=== PATIENT | male | born 1970 | race Caucasian/White ===

== ENCOUNTER 2022-06-30 19:19 | Emergency (ER) | payer OTHER ==
[2022-06-30] MEDS ORDERED: MORPHINE SULFATE 4 MG INJ IV ONE ×2 (20:16→21:59)
[2022-06-30] MEDS ORDERED: MORPHINE SULFATE 4 MG INJ ONE ×2 (20:18→22:05)
--- NOTE | 2022-06-30 20:42 | ERPHSYRPT ---
- History of Present Illness Time Seen by Provider: 06/30/22 20:38 Source: patient Exam Limitations: no limitations Patient Subjective Stated Complaint: pt states he fell through a hole in the roof and caught himsef on his rt side. reprts pain in rt side. denies any other injury Triage Nursing Assessment: pt alert and oriented, answers questions approp. pt ambulates into room with slow steady gait noted. skin warm and dry. no bruising noted over ribs. pt reports tenderness with light palpation over lower ribs, anterior and posterior. Physician History: Patient is a 52-year-old male presents to emergency department for evaluation of right-sided rib pain. Patient states he fell through a roof and injured his right rib. Patient's ribs 7, 8, 9 are tender. No right upper quadrant pain or tenderness. Injury occurred just prior to arrival. No other injuries reported. No BHT or LOC. No neck pain. Cervical spine cleared clinically. No nausea vomiting or diaphoresis. Patient has a history of controlled hypertension. Patient is otherwise healthy. He voices no other complaints or concerns at this time. Patient is allergic to Toradol however he agreed to morphine IM for pain control Portions of this note were created with voice recognition technology. There may be grammatical, spelling, punctuation or sound alike errors Timing/Duration: today Severity: moderate Modifying Factors: Improves With: nothing Associated Symptoms: denies symptoms Allergies/Adverse Reactions: ketorolac tromethamine [From Toradol] Allergy (Verified 06/21/15 04:04) Home Medications: No Reportable Medications [No Reported Medications] 06/21/15 [History] Hx Tetanus, Diphtheria Vaccination/Date Given: Yes Hx Influenza Vaccination/Date Given: No Hx Pneumococcal Vaccination/Date Given: No Immunizations Up to Date: Yes Travel Risk - International Travel Have you traveled outside of the country in past 3 weeks: No - Coronavirus Screening Are you exhibiting any of the following symptoms?: No Close contact with a COVID-19 positive Pt in past 14-21 Days: No - Vaccine Status Have you recieved a Covid-19 vaccination: Yes [employer]: Intent - Vaccination Dates Date of 2cond Vaccination (if applicable): 2020 - Review of Systems Constitutional: No Symptoms, No Fever, No Chills Eyes: No Symptoms Ears, Nose, & Throat: No Symptoms Respiratory: No Symptoms, No Cough, No Dyspnea Cardiac: No Symptoms, No Chest Pain, No Edema, No Syncope Abdominal/Gastrointestinal: No Symptoms, No Abdominal Pain, No Nausea, No Vomiting, No Diarrhea Genitourinary Symptoms: No Symptoms, No Dysuria Musculoskeletal: No Symptoms, No Back Pain, No Neck Pain Skin: No Symptoms, No Rash Neurological: No Symptoms, No Dizziness, No Focal Weakness, No Sensory Changes Psychological: No Symptoms Endocrine: No Symptoms Hematologic/Lymphatic: No Symptoms Immunological/Allergic: No Symptoms All Other Systems: Reviewed and Negative - Past Medical History Pertinent Past Medical History: No Neurological History: No Pertinent History ENT History: No Pertinent History Cardiac History: High Cholesterol, Hypertension Respiratory History: No Pertinent History Endocrine Medical History: No Pertinent History Musculoskeletal History: No Pertinent History GI Medical History: No Pertinent History History: No Pertinent History Psycho-Social History: No Pertinent History Male Reproductive Disorders: No Pertinent History - Past Surgical History Past Surgical History: Yes Neuro Surgical History: No Pertinent History Cardiac: No Pertinent History Respiratory: No Pertinent History Gastrointestinal: Hernia Repair Genitourinary: No Pertinent History Musculoskeletal: Orthopedic Surgery Male Surgical History: No Pertinent History Other Surgical History: EYE, finger amputation, foot surgery - Social History Smoking Status: Never smoker Exposure to second hand smoke: No Drug Use: none Patient Lives Alone: No - Nursing Vital Signs Nursing Vital Signs: Initial Vital Signs Temperature 98.4 F 06/30/22 19:58 Pulse Rate 83 06/30/22 19:58 Respiratory Rate 18 06/30/22 19:58 Blood Pressure 129/85 06/30/22 19:58 O2 Sat by Pulse Oximetry 97 06/30/22 19:58 Pain Scale Pain Intensity 5 - Physical Exam General Appearance: no apparent distress, alert Eye Exam: PERRL/EOMI, eyes nml inspection Ears, Nose, Throat Exam: normal ENT inspection, TMs normal, pharynx normal, moist mucous membranes Neck Exam: normal inspection, non-tender, supple, full range of motion Respiratory Exam: normal breath sounds, lungs clear, airway intact, other (Tenderness to palpation right ribs 7, 8, 9, no right upper quadrant tenderness to palpation. Negative: Negative Gonzalez Khan sign. No abdominal pain), No respiratory distress Cardiovascular Exam: regular rate/rhythm, normal heart sounds, normal peripheral pulses Gastrointestinal/Abdomen Exam: soft, normal bowel sounds, No tenderness, No mass Back Exam: normal inspection, normal range of motion, No CVA tenderness, No vertebral tenderness Extremity Exam: normal inspection, normal range of motion, pelvis stable Neurologic Exam: alert, oriented x 3, cooperative, normal mood/affect, nml cere bellar function, nml station & gait, sensation nml, No motor deficits Skin Exam: normal color, warm, dry, No rash Lymphatic Exam: No adenopathy SpO2 Interpretation: normal SpO2: 97 O2 Delivery: Room Air - Course Nursing assessment & vital signs reviewed: Yes EKG Interpreted by Me: RATE (75), Sinus Rhythm, NORMAL AXIS, NORMAL INTERVALS, Right Bundle Branch Block - CT Exams Chest CT Interpretation: Tele-radiologist Report (No comps. Normal chest. Incidental nonobstructing bilateral renal micro calculi, fecal stasis old granulomatous disease) Ordered Tests: Active Orders 24 hr Category Date Time Status EKG-ER Only STAT Care 06/30/22 20:07 Active CHEST WITHOUT CONTRAST [CT] Stat Exams 06/30/22 20:06 Taken Medication Summary Discontinued Medications Generic Name Dose Route Start Last Admin Trade Name Gio PRN Reason Stop Dose Admin Hydrocodone Bitart/Acetaminophen 4 tab 06/30/22 21:59 Hydrocodone/Apap 5/325 1 Tab Tablet PO 06/30/22 22:00 SENT HOME W/ PATIENT ONE Morphine Sulfate 4 mg 06/30/22 20:16 06/30/22 20:18 Morphine Sulfate 4 Mg/Ml Injection IV 06/30/22 20:17 4 mg STAT ONE Administration Morphine Sulfate Confirm 06/30/22 20:18 Morphine Sulfate 4 Mg/Ml Injection Administered 06/30/22 20:19 Dose 4 mg .ROUTE .STK-MED ONE Morphine Sulfate 4 mg 06/30/22 21:59 Morphine Sulfate 4 Mg/Ml Injection IV 06/30/22 22:00 STAT ONE - Progress Progress: improved Progress Note: Patient is a 52-year-old male presents to our ED for evaluation of right rib pain. Patient fell through a roof. Physical exam reveals tenderness to palpation at ribs 7 8 and 9 primarily. Presentation/pain is acute. Complexity of problem is mild. No core morbidities within the context of this injury. Tests ordered include CT chest. CT chest negative for fractures. Incidental nonobstructing bilateral renal micro calculi. Results of testing assisted in medical decision making. Patient received morphine IM for pain control. Pain well controlled. Patient also received [place] for home. Plan of care patient agrees to follow-up with primary care doctor within 48 hours for evaluation. Patient has the ability to access his primary care doctor for follow-up. Level of EM service provided is moderate. Complexity of problem is minimal. Complexity of data reviewed and analyzed is minimal. Risks of treatment is minimal to moderate. Patient is allergic to Toradol so we are unable to administer Toradol for pain control. No critical care time. 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 Significant other at bedside. They voiced no other complaints or concerns at this time. Portions of this note were created with voice recognition technology. There may be grammatical, spelling, punctuation or sound alike errors Counseled pt/family regarding: lab results, diagnosis, need for follow-up, rad results - Departure Departure Disposition: Home Clinical Impression: Rib pain, Fall, Rib contusion, Nephrolithiasis Condition: Stable Critical Care Time: No Referrals: DOCTOR,NO FAMILY [Primary Care Provider] - Follow up/PCP as directed Additional Instructions: Discharge/Care Plan WALDO MCMULLEN was seen on 06/30/22 in the Emergency Room. The patient was counseled regarding Diagnosis,Lab results, Imaging studies, need for follow up and when to return to the Emergency Room. Prescriptions given: Discharge Note I have spoken with the patient and/or caregivers. I have explained the patient's condition, diagnosis and treatment plan based on the information available to me at this time. I have answered the patient's and/or caregiver's questions and a ddressed any concerns. The patient and/or caregivers have as good understanding of the patient's diagnosis, condition and treatment plan as can be expected at this point. The vital signs have been stable. The patient's condition is stable and appropriate for discharge from the emergency department. The patient will pursue further outpatient evaluation with the primary care physician or other designated or consulting physician as outlined in the discharge instructions. The patient and/or caregivers are agreeable to this plan of care and follow-up instructions have been explained in detail. The patient and/or caregivers have received these instruction. The patient/and or caregivers are aware that any significant change in condition or worsening of symptoms should prompt an immediate return to this or the closest emergency department or call 911.
[2022-06-30] MEDS ORDERED: NORCO 5/325 MG PO ONE (21:59)
[2022-06-30 22:00] VITALS: O2SAT 97
[2022-06-30] MEDS ORDERED: NORCO 5/325 MG ONE (22:05)
[2022-06-30 22:27] VITALS: BP 125/98; PULSE 88
--- NOTE | 2022-07-01 08:28 | XRAY ---
Indication: Right chest pain following fall. Multiple contiguous images obtained through the chest without contrast. Comparison: None Lungs demonstrates minimal bilateral dependent atelectasis and a few bilateral calcified granulomas. No suspicious pulmonary mass/nodule, infiltrate, effusion, or pneumothorax. Heart not enlarged. Aorta is normal in course and caliber chunky right hilar and lesser degree left hilar calcified nodes. No pathologic mediastinal lymphadenopathy. Bony thorax intact. Limited upper abdomen demonstrates a few nonobstructing bilateral renal micro-calculi and splenic calcified granulomas. Visualized colon demonstrates moderate diffuse fecal debris. Impression: Negative CT chest without contrast exam. Incidental colonic fecal stasis, nonobstructing bilateral renal micro-calculi, and old granulomatous disease.
== END 2022-06-30 22:26 | disposition home or self-care (01) ==
LOC: ED 19:19
DX: S20.211A Contusion of right front wall of thorax, initial encounter (principal); W13.2XXA Fall from, out of or through roof, initial encounter; R07.81 Pleurodynia; N20.0 Calculus of kidney; I10 Essential (primary) hypertension; E78.5 Hyperlipidemia, unspecified; Z79.891 Long term (current) use of opiate analgesic
CPT/HCPCS: 71250; 93005; 96374; 96376; 99284; J2270; A9270-GY

== ENCOUNTER 2022-10-23 20:16 | Emergency (ER) | payer OTHER ==
[2022-10-23] MEDS ORDERED: Sodium Chloride 0.9% 1000 ML 1,000 ML IV STA (20:41)
[2022-10-23 20:46] LABS: Absolute Neutrophil Ct (ANC) 2.86 x10^3/uL (1.4-6.9); BASOPHIL % 0.9 % (0.0-0.4); Basophil (Absolute #) 0.04 x10^3/uL (0-0.4); Eosinophil % 5.8 % (0.00-5.0); Eosinophil (Absolute #) 0.27 x10^3/uL (0-0.5); Hematocrit 41.2 % (42-50); Hemoglobin 13.3 g/dL (12.5-18.0); IMMATURE GRAN # 0.01 x10^3u/L (0.00-0.03); IMMATURE GRAN % 0.2 % (0.00-0.4); Lymphocyte (Absolute #) 1.01 x10^3/uL (1.0-4.6); Lymphocytes % 21.5 % (24.0-44.0); Mean Cell Volume 91.6 fL (78-100); Mean Corpuscular Hemoglobin 29.6 pg (26-32); Mean Corpuscular Hgb Concent. 32.3 g/dL (32-36); Mean Platelet Volume 9.9 fL (7.5-11.0); Monocytes % 10.7 % (0.0-12.0); Neutrophil % 60.9 % (36.0-66.0); Platelet Count 245 x10^3/uL (150-450); Red Cell Distribution Width 13.1 % (11.5-14.0); White Blood Count 4.7 x10^3/uL (4.0-10.5)
[2022-10-23 20:53] LABS: ALBUMIN 3.9 g/dL (3.5-5.0); ALKALINE PHOSPHATASE 63 U/L (38-126); ANION GAP 12.8 MEQ/L (5-15); BLOOD UREA NITROGEN 15 mg/dL (9-20); CHLORIDE 103 mmol/L (98-107); CK-Creatinine Phosphokinase 202 U/L (55-170); Calcium 8.6 mg/dL (8.4-10.2); Carbon Dioxide 28 mmol/L (22-30); EST GLOMERULAR FILTRATION RATE > 60.0 ML/MIN; Glucose 121 mg/dL (74-106); Potassium 3.8 mmol/L (3.5-5.1); SGOT/AST 34 U/L (17-59); SGPT/ALT 25 U/L (0-50); SODIUM 140 mmol/L (137-145); Total Protein 6.9 g/dL (6.3-8.2)
[2022-10-23] MEDS ORDERED: TYLENOL 325 MG PO ONE (21:05)
[2022-10-23] MEDS ORDERED: Sodium Chloride 0.9% 1000 ML 1,000 ML ONE (21:07)
[2022-10-23] MEDS ORDERED: TYLENOL 325 MG ONE (21:07)
[2022-10-23 21:21] VITALS: PULSE 97; O2SAT 98
--- NOTE | 2022-10-23 21:43 | ERPHSYRPT ---
- History of Present Illness Time Seen by Provider: 10/23/22 20:18 Source: patient, family Exam Limitations: no limitations Patient Subjective Stated Complaint: pt states "bp was up and I couldn't take the headache anymore" "my dad took me to [facility] in [place] who told me to go to [facility] and check bp" Triage Nursing Assessment: pt ambulated to room 5 independently with slow steady gait. pt is alert and oriented times three, able to move all extremities, resp even and unlabored, and able to speak in complete sentences. Physician History: 52-year-old male with history of anxiety, hypertension presented in the ER with multiple complaints. Patient reports having high blood pressure off and on all day long with a max of 185 earlier today and also having off-and-on headache with some blurry vision and occasional chest pains. Patient denies any chest pain currently. Does report having some headache and per mom patient was wobbly earlier and was not feeling himself. Per mom patient is usually very active but today was not feeling/doing his normal. Mom is concerned about him having TIA/mini strokes. Patient though denies any numbness tingling or focal weakness. All this started around 10:30 AM today. Still have headache but has not taken anything since morning. Rates headache 78/10 all over. No neck stiffness or difficulty movements of neck. Timing/Duration: today, gradual onset, worse Severity: moderate Modifying Factors: Improves With: nothing Associated Symptoms: chest pain, headaches, No shortness of breath Allergies/Adverse Reactions: ketorolac tromethamine [From Toradol] Allergy (Verified 06/21/15 04:04) Home Medications: Bupropion HCl Xl 150 mg [Wellbutrin XL 150 MG] 150 mg PO DAILY 10/23/22 [History] cloNIDine HCL 0.2 mg PO HS 10/23/22 [History] Hx Tetanus, Diphtheria Vaccination/Date Given: Yes Hx Influenza Vaccination/Date Given: No Hx Pneumococcal Vaccination/Date Given: No Immunizations Up to Date: Yes Travel Risk - International Travel Have you traveled outside of the country in past 3 weeks: No - Coronavirus Screening Are you exhibiting any of the following symptoms?: No Close contact with a COVID-19 positive Pt in past 14-21 Days: No - Vaccine Status Have you recieved a Covid-19 vaccination: Yes [employer]riving [employer] In[employer]: [employer] - Vaccination Dates Date of 2cond Vaccination (if applicable): 2020 - Review of Systems Constitutional: Fatigue, Weakness Eyes: No Symptoms Ears, Nose, & Throat: No Symptoms Respiratory: No Symptoms Cardiac: Chest Pain Abdominal/Gastrointestinal: No Symptoms Genitourinary Symptoms: No Symptoms Musculoskeletal: No Symptoms Neurological: Headache, No Dizziness Psychological: Anxiety Endocrine: No Symptoms Hematologic/Lymphatic: No Symptoms Immunological/Allergic: No Symptoms - Past Medical History Pertinent Past Medical History: Yes Neurological History: No Pertinent History ENT History: No Pertinent History Cardiac History: High Cholesterol, Hypertension Respiratory History: No Pertinent History Endocrine Medical History: No Pertinent History Musculoskeletal History: No Pertinent History GI Medical History: No Pertinent History History: No Pertinent History Psycho-Social History: No Pertinent History Male Reproductive Disorders: No Pertinent History - Past Surgical History Past Surgical History: Yes Neuro Surgical History: No Pertinent History Cardiac: No Pertinent History Respiratory: No Pertinent History Gastrointestinal: Hernia Repair Genitourinary: No Pertinent History Musculoskeletal: Orthopedic Surgery Male Surgical History: No Pertinent History Other Surgical History: EYE, finger amputation, foot surgery - Social History Smoking Status: Never smoker Exposure to second hand smoke: No Drug Use: none Patient Lives Alone: No - Nursing Vital Signs Nursing Vital Signs: Initial Vital Signs Temperature 97.8 F 10/23/22 20:21 Pulse Rate 88 10/23/22 20:21 Respiratory Rate 23 10/23/22 20:21 Blood Pressure 153/105 10/23/22 20:21 O2 Sat by Pulse Oximetry 98 10/23/22 20:21 Pain Scale Pain Intensity 7 - Physical Exam General Appearance: no apparent distress, alert Eye Exam: PERRL/EOMI Ears, Nose, Throat Exam: normal ENT inspection, TMs normal, pharynx normal, moist mucous membranes Neck Exam: normal inspection, non-tender, supple, full range of motion Respiratory Exam: normal breath sounds, lungs clear Cardiovascular Exam: regular rate/rhythm, normal heart sounds Gastrointestinal/Abdomen Exam: soft, normal bowel sounds, No tenderness Back Exam: normal inspection, normal range of motion, No CVA tenderness Extremity Exam: normal inspection, normal range of motion, pelvis stable Neurologic Exam: alert, oriented x 3, cooperative, rn embedded II-XII nml as tested, nml cerebellar function, nml station & gait, sensation nml, No normal mood/affect (Flat), No motor deficits Skin Exam: normal color SpO2 Interpretation: normal SpO2: 98 O2 Delivery: Room Air - Course EKG Interpreted by Me: RATE (85), Sinus Rhythm, NORMAL AXIS, NORMAL INTERVALS, NORMAL QRS Ordered Tests: Active Orders 24 hr Category Date Time Status Manager Steel STAT Care 10/23/22 20:42 Active EKG-ER Only STAT Care 10/23/22 20:41 Active IV Insertion STAT Care 10/23/22 20:41 Active Pulse Oximetry (ED) STAT Care 10/23/22 20:41 Active CHEST 1 VIEW (PORTABLE) Stat Exams 10/23/22 20:41 Taken HEAD WITHOUT CONTRAST [CT] Stat Exams 10/23/22 20:42 Taken CBC W DIFF Stat Lab 10/23/22 20:30 Completed CK-Creatinine Phosphokinase Stat Lab 10/23/22 20:30 Completed CMP Stat Lab 10/23/22 20:30 Completed MAG [MAGNESIUM] Stat Lab 10/23/22 20:30 Completed TROPONIN Q4H Lab 10/23/22 20:30 Completed TROPONIN Q4H Lab 10/24/22 00:45 Ordered TROPONIN Q4H Lab 10/24/22 04:45 Ordered Urine Triage Profile Stat Lab 10/23/22 20:41 Ordered Medication Summary Discontinued Medications Generic Name Dose Route Start Last Admin Trade Name Freq PRN Reason Stop Dose Admin Acetaminophen 975 mg 10/23/22 21:05 10/23/22 21:08 Acetaminophen 325 Mg Tablet PO 10/23/22 21:06 975 mg STAT ONE Administration Acetaminophen Confirm 10/23/22 21:07 Acetaminophen 325 Mg Tablet Administered 10/23/22 21:08 Dose 975 mg .ROUTE .STK-MED ONE Sodium Chloride 1,000 mls @ 999 mls/hr 10/23/22 20:41 10/23/22 22:14 Sodium Chloride 0.9% 1000 Ml IV 10/23/22 21:41 Infused .Q1H1M STA Infusion Sodium Chloride Confirm 10/23/22 21:07 Sodium Chloride 0.9% 1000 Ml Administered 10/23/22 21:08 Dose 1,000 mls @ ud .ROUTE .STK-MED ONE Lab/Rad Data: Laboratory Result Diagrams 10/23/22 20:30 10/23/22 20:30 Laboratory Results 10/23/22 10/23/22 10/23/22 Range/Units 20:30 20:30 20:30 WBC (4.0-10.5) x10^3/uL RBC (4.1-5.6) x10^6/uL Hgb (12.5-18.0) g/dL Hct (42-50) % MCV (78-100) fL MCH (26-32) pg MCHC (32-36) g/dL RDW (11.5-14.0) % Plt Count (150-450) x10^3/uL MPV (7.5-11.0) fL Gran % (36.0-66.0) % Immature Gran % (Auto) (0.00-0.4) % Nucleat RBC Rel Count (0.00-0.1) % Eos # (Auto) (0-0.5) x10^3/uL Immature Gran # (Auto) (0.00-0.03) x10^3u/L Absolute Lymphs (auto) (1.0-4.6) x10^3/uL Absolute Monos (auto) (0.0-1.3) x10^3/uL Absolute Nucleated RBC (0.00-0.01) x10^3u/L Lymphocytes % (24.0-44.0) % Monocytes % (0.0-12.0) % Eosinophils % (0.00-5.0) % Basophils % (0.0-0.4) % Absolute Granulocytes (1.4-6.9) x10^3/uL Basophils # (0-0.4) x10^3/uL Sodium 140 (137-145) mmol/L Potassium 3.8 (3.5-5.1) mmol/L Chloride 103 (98-107) mmol/L Carbon Dioxide 28 (22-30) mmol/L Anion Gap 12.8 (5-15) MEQ/L BUN 15 (9-20) mg/dL Creatinine 1.10 (0.66-1.25) mg/dL Estimated GFR > 60.0 ML/MIN Glucose 121 H (74-106) mg/dL Calcium 8.6 (8.4-10.2) mg/dL Magnesium 1.9 (1.6-2.3) mg/dL Total Bilirubin 0.50 (0.2-1.3) mg/dL AST 34 (17-59) U/L ALT 25 (0-50) U/L Alkaline Phosphatase 63 (38-126) U/L Creatine Kinase 202 H (55-170) U/L Troponin I < 0.012 (0.000-0.034) ng/mL Serum Total Protein 6.9 (6.3-8.2) g/dL Albumin 3.9 (3.5-5.0) g/dL 10/23/22 Range/Units 20:30 WBC 4.7 (4.0-10.5) x10^3/uL RBC 4.50 (4.1-5.6) x10^6/uL Hgb 13.3 (12.5-18.0) g/dL Hct 41.2 L (42-50) % MCV 91.6 (78-100) fL MCH 29.6 (26-32) pg MCHC 32.3 (32-36) g/dL RDW 13.1 (11.5-14.0) % Plt Count 245 (150-450) x10^3/uL MPV 9.9 (7.5-11.0) fL Gran % 60.9 (36.0-66.0) % Immature Gran % (Auto) 0.2 (0.00-0.4) % Nucleat RBC Rel Count 0.0 (0.00-0.1) % Eos # (Auto) 0.27 (0-0.5) x10^3/uL Immature Gran # (Auto) 0.01 (0.00-0.03) x10^3u/L Absolute Lymphs (auto) 1.01 (1.0-4.6) x10^3/uL Absolute Monos (auto) 0.50 (0.0-1.3) x10^3/uL Absolute Nucleated RBC 0.00 (0.00-0.01) x10^3u/L Lymphocytes % 21.5 L (24.0-44.0) % Monocytes % 10.7 (0.0-12.0) % Eosinophils % 5.8 H (0.00-5.0) % Basophils % 0.9 (0.0-0.4) % Absolute Granulocytes 2.86 (1.4-6.9) x10^3/uL Basophils # 0.04 (0-0.4) x10^3/uL Sodium (137-145) mmol/L Potassium (3.5-5.1) mmol/L Chloride (98-107) mmol/L Carbon Dioxide (22-30) mmol/L Anion Gap (5-15) MEQ/L BUN (9-20) mg/dL Creatinine (0.66-1.25) mg/dL Estimated GFR ML/MIN Glucose (74-106) mg/dL Calcium (8.4-10.2) mg/dL Magnesium (1.6-2.3) mg/dL Total Bilirubin (0.2-1.3) mg/dL AST (17-59) U/L ALT (0-50) U/L Alkaline Phosphatase (38-126) U/L Creatine Kinase (55-170) U/L Troponin I (0.000-0.034) ng/mL Serum Total Protein (6.3-8.2) g/dL Albumin (3.5-5.0) g/dL - Progress Progress: improved, re-examined Progress Note: 10/23/22 22:52 52-year-old is evaluated for headache since morning with feeling tired weak and not himself and having occasional chest pain. Patient does not have any chest pain while in the ER and EKG showed sinus rhythm with no acute ischemic changes. I did not appreciate any focal neurodeficit. Obtained CT head which is negative. Blood pressure is in 150s. 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 I have given him fluids and Tylenol, on reevaluation his headache is almost completely resolved. I have obtained CT head which is negative for any acute intracranial findings and have discussed/obtained tele neuro consult who do not think patient has a stroke or TIA and more of a headache and recommended supportive care and control of blood pressure. Patient is advised to follow-up with his primary care for reevaluation. Troponins are also negative and patient is chest pain-free and do not think needs second troponin as his symptoms does not seem cardiac. It seems more of a heat exhau stion. Recommended supportive care and outpatient follow-up. Discussed signs symptoms of worsening needing return to ER which he seems understanding. Counseled pt/family regarding: lab results, diagnosis, need for follow-up, rad results Medical Desision Making - Independent Historian Additional History obtained from: Mother - Discussion of managment Care discussed with:: specialist (tele neuro) Reviewed:: Test results Agreed on:: Treatment plan, need for follow-up Will see patient: in ED - Diagnostic Testing Diagnostic test were ordered, analyzed, and reviewed by me: Yes Radiological Interpretation: Reviewed by me, Teleradiologist Report - Risk of complications The pt has a mod risk of morbidity or mortality based on: Need for prescription drug management - Departure Departure Disposition: Home Clinical Impression: Heat exhaustion Headache Qualifiers: Headache type: unspecified Headache chronicity pattern: acute headache Intractability: not intractable Qualified Code(s): R51.9 - Headache, unspecified Condition: Stable Critical Care Time: No Referrals: DOCTOR,NO FAMILY [Primary Care Provider] - Follow up/PCP as directed DIANA AGUAYO MD [ACTIVE STAFF] - Follow up/PCP as directed (1-2 days for re evaluation) Instructions: High Blood Pressure (DC), Headache, Adult (DC) Additional Instructions: Take Tylenol/ibuprofen as needed for headache. Drink plenty of fluids to keep yourself well-hydrated. Monitor your blood pressure regularly, keep a log and follow-up with primary care for reevaluation and may need changes in your antihypertensive. Return to ER for any worsening.
[2022-10-23 22:18] VITALS: BP 138/96
--- NOTE | 2022-10-24 08:33 | XRAY ---
Indication: Headache. No known injury. Multiple contiguous axial images obtained through the head without contrast. Comparison: None Normal appearing brain parenchyma, ventricles, and bony calvarium for patient's age. Visualized paranasal sinuses and mastoid air cells are clear. Impression: Normal CT head without contrast exam.
--- NOTE | 2022-10-24 08:35 | XRAY ---
Indication: Headache and chest pain. Comparison: None Portable chest demonstrates scattered tiny calcified granulomas bilaterally. No focal infiltrate, consolidation, or large effusion. Heart and mediastinal structures within normal limits. Bony thorax intact. Impression: Nonacute chest. Incidental old granulomatous disease.
== END 2022-10-23 23:01 | disposition home or self-care (01) ==
LOC: ED 20:16
DX: T67.5XXA Heat exhaustion, unspecified, initial encounter (principal); R51.9 Headache, unspecified; I10 Essential (primary) hypertension; F41.9 Anxiety disorder, unspecified; Z79.899 Other long term (current) drug therapy; Z20.828 Contact with and (suspected) exposure to other viral communicable diseases
CPT/HCPCS: 36000; 36415; 70450; 71045; 80053; 82550; 83735; 84484; 85025; 93005; 93041; 94760; 96360; 99284; A9270-GY

== ENCOUNTER 2023-03-17 13:55 | Emergency (ER) | payer OTHER ==
--- NOTE | 2023-03-17 14:01 | ERPHSYRPT ---
- History of Present Illness Time Seen by Provider: 03/17/23 14:00 Source: patient, family Exam Limitations: no limitations Physician History: This is a 52-year-old white male patient has a history of hypertension and anxiety/depression who presents to the emergency room with left eye pain. Patient states he was working with a color grinder on his car last evening when metal debris hit his left eye per his report. He was having discomfort last night but the pain is worse this morning. Patient states he must work tonight. He is starting a new job. Timing/Duration: yesterday Severity: mild (Moderate) Associated Symptoms: denies symptoms Allergies/Adverse Reactions: ketorolac tromethamine [From Toradol] Allergy (Verified 03/17/23 14:09) Home Medications: Bupropion HCl Xl 150 mg [Wellbutrin XL 150 MG] 150 mg PO DAILY 10/23/22 [History] cloNIDine HCL 0.2 mg PO HS 10/23/22 [History] Hx Tetanus, Diphtheria Vaccination/Date Given: Yes Hx Influenza Vaccination/Date Given: No Hx Pneumococcal Vaccination/Date Given: No Travel Risk - International Travel Have you traveled outside of the country in past 3 weeks: No - Coronavirus Screening Are you exhibiting any of the following symptoms?: No Close contact with a COVID-19 positive Pt in past 14-21 Days: No - Vaccine Status Have you recieved a Covid-19 vaccination: Yes 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[employer]: [employer] - Vaccination Dates Date of 2cond Vaccination (if applicable): 2020 - Review of Systems Constitutional: No Symptoms Eyes: Eye Redness, Tearing, Foreign Body Sensation Ears, Nose, & Throat: No Symptoms Respiratory: No Symptoms Cardiac: No Symptoms Abdominal/Gastrointestinal: No Symptoms Genitourinary Symptoms: No Symptoms Musculoskeletal: No Symptoms Skin: No Symptoms Neurological: No Symptoms Psychological: No Symptoms Endocrine: No Symptoms Hematologic/Lymphatic: No Symptoms Immunological/Allergic: No Symptoms All Other Systems: Reviewed and Negative - Past Medical History Pertinent Past Medical History: Yes Neurological History: No Pertinent History ENT History: No Pertinent History Cardiac History: High Cholesterol, Hypertension Respiratory History: No Pertinent History Endocrine Medical History: No Pertinent History Musculoskeletal History: No Pertinent History GI Medical History: No Pertinent History History: No Pertinent History Psycho-Social History: No Pertinent History Male Reproductive Disorders: No Pertinent History - Past Surgical History Past Surgical History: Yes Neuro Surgical History: No Pertinent History Cardiac: No Pertinent History Respiratory: No Pertinent History Gastrointestinal: Hernia Repair Genitourinary: No Pertinent History Musculoskeletal: Orthopedic Surgery Male Surgical History: No Pertinent History Other Surgical History: EYE, finger amputation, foot surgery - Social History Smoking Status: Never smoker Exposure to second hand smoke: No Drug Use: none Patient Lives Alone: No - Nursing Vital Signs Nursing Vital Signs: Initial Vital Signs Temperature 97.0 F 03/17/23 14:12 Pulse Rate 94 H 03/17/23 14:12 Respiratory Rate 18 03/17/23 14:12 Blood Pressure 154/119 03/17/23 14:12 O2 Sat by Pulse Oximetry 98 03/17/23 14:12 Pain Scale Pain Intensity 10 - Physical Exam General Appearance: no apparent distress, alert, anxiety Eye Exam: other (There is obvious conjunctivitis in the left eye. No gross evidence of foreign body. 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 Examination of the eye using ultraviolet light magnification showed a corneal abrasion of the proximal with 2 to 3 o'clock position without evidence of a foreign body. This was in the area where the patient was sensing pain and irritation Ordered Tests: Active Orders 24 hr Category Date Time Status Visual Acuity STAT Care 03/17/23 14:26 Active Medication Summary Discontinued Medications Generic Name Dose Route Start Last Admin Trade Name Freq PRN Reason Stop Dose Admin Eye Irrigation Solution 15 ml 03/17/23 14:26 03/17/23 14:29 Sodium/Potassium/Bahman/Magnesium 30 Ml Eye Wash OP 03/17/23 14:27 15 ml STAT ONE Administration Eye Irrigation Solution Confirm 03/17/23 14:28 Sodium/Potassium/Bahman/Magnesium 30 Ml Eye Wash Administered 03/17/23 14:29 Dose 30 ml .ROUTE .STK-MED ONE Fluorescein Sodium 1 mg 03/17/23 14:26 03/17/23 14:29 Fluorescein Sodium 1 Mg/Strip Strip OP 03/17/23 14:27 1 mg STAT ONE Administration Fluorescein Sodium Confirm 03/17/23 14:28 Fluorescein Sodium 1 Mg/Strip Strip Administered 03/17/23 14:29 Dose 1 mg OP .STK-MED ONE Tetracaine HCl 4 ml 03/17/23 14:26 03/17/23 14:29 Tetracaine Hcl/Pf 4 Ml Bottle OP 03/17/23 14:27 4 ml STAT STA Administration Tetracaine HCl Confirm 03/17/23 14:27 Tetracaine Hcl/Pf 4 Ml Bottle Administered 03/17/23 14:28 Dose 4 ml OP .STK-MED ONE - Progress Progress: improved, pain not gone completely, re-examined Progress Note: 03/17/23 14:29 This patient's medical issues 1 of low complexity. Level complex in the work-up performed is based on review of the patient's past medical history, review the patient's medication list, review of the patient's drug allergy list, history of present illness and physical findings on examination. The work-up in this patient includes a fluorescein eye test to see if we can appreciate foreign bodies in his left eye. Patient will also have antibiotics/steroid eyedrops remotely sent to his pharmacy. In addition, we will send a prescription for Cadogan 5/325 6 tablets. Patient is also instructed to follow-up with an bee robber in the next 3 to 5 days Counseled pt/family regarding: diagnosis, need for follow-up Medical Desision Making - Diagnostic Testing Diagnostic test were ordered, analyzed, and reviewed by me: No - Risk of complications The pt has a mod risk of morbidity or mortality based on: Need for prescription drug management - Departure Departure Disposition: Home Clinical Impression: Corneal abrasion, left Condition: Stable Critical Care Time: No Referrals: DOCTOR,NO FAMILY [Primary Care Provider] - Follow up/PCP as directed Additional Instructions: Continue rinsing out your eye just prior to every instillation of antibiotic eyedrops into your left eye. Take your medications as prescribed. Call a bee robber for follow-up evaluation management in the next 2 to 3 days. You may go to work at night but do not take your narcotic pain medicine prior to you attending work Forms: Work/School Release Form Prescriptions: Hydrocodone/APAP 5/325 [Cadogan 5/325 mg] 1 each PO Q8H PRN PRN #6 tablet MDD 3 PRN Reason: Pain Neomycin/Polymyxin B/Hydrocort [Omgawwfd-Phht-Fy Eye Drops] 2 drops OP QID #7.5 ml
[2023-03-17 14:13] VITALS: TEMP 97
[2023-03-17] MEDS ORDERED: Fluor-I-Strip/Ful-Flo OP ONE ×2 (14:26→14:28)
[2023-03-17] MEDS ORDERED: Eye-Stream Solution OP ONE (14:26)
[2023-03-17] MEDS ORDERED: TETRACAINE 0.5% STERI-UNIT SOL OP STA (14:26)
[2023-03-17] MEDS ORDERED: TETRACAINE 0.5% STERI-UNIT SOL OP ONE (14:27)
[2023-03-17] MEDS ORDERED: Eye-Stream Solution ONE (14:28)
[2023-03-17 14:59] VITALS: BP 161/118; PULSE 84; RESP 16; O2SAT 97
== END 2023-03-17 14:54 | disposition home or self-care (01) ==
LOC: ED 13:55
DX: S05.02XA Injury of conjunctiva and corneal abrasion without foreign body, left eye, initial encounter (principal); W20.8XXA Other cause of strike by thrown, projected or falling object, initial encounter; I10 Essential (primary) hypertension; E78.5 Hyperlipidemia, unspecified; Z79.891 Long term (current) use of opiate analgesic; Z79.899 Other long term (current) drug therapy
CPT/HCPCS: 99281; A9270-GY